=== PATIENT | male | born 1985 | race Caucasian/White ===

== ENCOUNTER 2018-07-18 08:05 | Observation (INO) | payer BC ==
[~2018-07-18] VITALS: Ht 182.9 cm; Wt 113.6 kg
[2018-07-18] MEDS ORDERED: SODIUM CHLORIDE 0.9% 1,000 ML IV SCH (08:48)
[2018-07-18] MEDS ORDERED: FLEC50TA25 PO (09:03)
[2018-07-18] MEDS ORDERED: BECL10.62 INH (09:03)
[2018-07-18] MEDS ORDERED: PLEASE ENTER HEIGHT AND WEIGHT MC SCH (09:30)
[2018-07-18] MEDS ORDERED: FENTANYL PF 250 MCG/5ML ONE (10:25)
[2018-07-18] MEDS ORDERED: MIDAZOLAM 1 MG/ML, 2ML ONE (10:25)
[2018-07-18] MEDS ORDERED: PROPOFOL 10 MG/ML, 20ML ONE (10:28)
[2018-07-18] MEDS ORDERED: LIDOCAINE 1%, 20ML ONE (10:36)
[2018-07-18] MEDS ORDERED: DEXAMETHASONE 4 MG/ML, 1ML ONE (11:09)
[2018-07-18] MEDS ORDERED: ONDANSETRON 2MG/ML, 2ML ONE (11:09)
[2018-07-18] MEDS ORDERED: ROCURONIUM 10MG/ML,5ML ONE (11:39)
[2018-07-18] MEDS ORDERED: SUCCINYLCHOLINE 20 MG/ML, 10ML ONE (11:39)
[2018-07-18] MEDS ORDERED: ISOPROTERENOL 0.2MG/ML, 5ML ONE (11:53)
[2018-07-18] MEDS ORDERED: ACETAMINOPHEN 325 MG TABLET PO PRN ×2 (13:00→13:30)
[2018-07-18] MEDS ORDERED: MORPHINE SULFATE 4 MG/ML, 1ML IVPush PRN (13:30)
[2018-07-18] MEDS ORDERED: DIAZEPAM 5 MG/ML, 2ML IVPush PRN (13:30)
[2018-07-18] MEDS ORDERED: EPHEDRINE 50 MG/ML, 1ML IVPush PRN (13:30)
[2018-07-18] MEDS ORDERED: ALBUTEROL SULFATE 2.5 MG/3 ML NPPB PRN (13:30)
[2018-07-18] MEDS ORDERED: hydrALAzine 20 MG/ML, 1ML IV PRN (13:30)
[2018-07-18] MEDS ORDERED: ONDANSETRON ODT 8 MG PO PRN (13:30)
[2018-07-18] MEDS ORDERED: MEPERIDINE/PF 25MG/0.5ML IVPush PRN (13:30)
[2018-07-18] MEDS ORDERED: OXYcodone 5 MG/5 ML ORAL.SOL UDC PO PRN (13:30)
[2018-07-18] MEDS ORDERED: PROMETHAZINE 12.5 MG SUPP PR PRN (13:30)
[2018-07-18] MEDS ORDERED: MIDAZOLAM 1 MG/ML, 2ML IV PRN (13:30)
[2018-07-18] MEDS ORDERED: PROMETHAZINE 25 MG/ML, 1ML IV PRN (13:30)
[2018-07-18] MEDS ORDERED: HYDROmorphone 2 MG/ML, 1ML IVPush PRN (13:30)
[2018-07-18] MEDS ORDERED: FENTANYL PF 100 MCG/2ML IV PRN (13:30)
[2018-07-18] MEDS ORDERED: ONDANSETRON 2MG/ML, 2ML IV PRN (13:30)
[2018-07-18] MEDS ORDERED: LABETALOL 5MG/ML, 20ML IV PRN (13:30)
[2018-07-18 14:25] VITALS: BP 126/86
[2018-07-18] MEDS ORDERED: BUDESONIDE 0.5 MG/2 ML INHA NPPB SCH (14:30)
[2018-07-18 20:45] VITALS: BP 146/82
[2018-07-19 01:29] VITALS: BP 139/74
[2018-07-19 07:26] VITALS: BP 128/72
[2018-07-19] MEDS ORDERED: ACET325T14 PO (08:43)
[2018-07-19] MEDS ORDERED: ASPI81TA45 PO (08:43)
[2018-07-19] MEDS ORDERED: ASPIRIN 81 MG TABLET EC PO SCH (09:00)
== END 2018-07-19 09:54 | disposition home or self-care (01) ==
LOC: CACL 08:05 → ORIP 12:55 → 5SO 14:14 → DCLOUNGE 07-19 09:45
PROVIDERS: ADMIT Internal Medicine Cardiovascular Disease; ATTEND Internal Medicine Cardiovascular Disease
DX: I47.1 Supraventricular tachycardia (principal); I45.6 Pre-excitation syndrome; Z79.82 Long term (current) use of aspirin
CPT/HCPCS: 85347; 93462; 93613; 93623; 93653; 93662; C1730; C1759; C1766; C1893; C1894; C2630; G0378; J0330; J1100; J2250; J2405; J2704; J3010; J3490